=== PATIENT | female | born 1935 | race Caucasian/White ===

== ENCOUNTER → 2018-08-17 | Outpatient (CLI) | payer MEDICARE, OTHER ==
--- NOTE | 2018-08-17 17:37 | CONS ---
Assessment/Plan Assessment/Plan Hospital Course (Demo Recall) This is an 82-year-old female presenting with acute right knee pain for 2 months. Based on her examination history she likely has a mild sprain to her LCL and strain to her distal IT band as well as a possible medial meniscus tear. She is ligamentously stable. Plan: Recommend aspiration injection with steroid. Hinged knee brace to provide stability while lateral structures heal. Follow-up 4 weeks and at that time we will likely begin physical therapy if she is clinically improved. Assessment/Plan (Daily) Right knee aspiration and injection procedure: Risks and benefits aspiration reviewed with patient. The risks include infec tion, failure, pain, swelling, nerve/tendon/ligament damage. The patient verbalized understanding and verbal consent was obtained prior to procedure. The right knee was prepped in a sterile fashion with alcohol and betadine the site of aspiration was confirmed. Lateral approach was used. The skin and capsule was anesthetized with 3mL 1% lidocaine careful not to inject intra-art icularly. The right knee was aspirated. 35 mL of clear synovial fluid was aspirated. The needle was left intra-articularly the syringe was hugged and the syringe with 2 mL 1% lidocaine, 2 mL quarter 0.25% bupivacaine, 40 mg Kenalog was helped onto the needle. This was injected into the knee. The injection flowed freely. Good hemostasis was achieved and no complications noted. The patient tolerated the procedure well. Limit activity and ice for 24-48 hours Consultation Date/Type/Reason Admit Date/Time Date of Consultation: Aug 17, 2018 Reason for Consultation Right knee pain Date/Time of Note DATE: 08/17/18 TIME: 17:28 Hx of Present Illness Is a 82-year-old female with a chief complaint of right knee pain. The pain began approximately 2 months ago when stepping down from a high step. Denies any twisting or significant injury at that time. The patients pain is in the lateral and medial aspect of the right knee. Pain is not radiating to the lower leg. The pain is rated as a 8/10. Patient denies complaints of numbness or tingling. The pain is exacerbated by climbing stairs and ambulation. Pain is not relieved by NSAID's. Patient has been taking Aleve on a p.r.n. basis as well as using ice. Oral anti-inflammatories have given her gastritis. Duration: 2 months Injury: Stepped down from a high step Walking tolerance: Couple blocks Limp: Yes Support: Cane occasional Swelling: Yes Crepitation: Yes Instability: No Stairs: Uses banister Physical Therapy: No Injections: No NSAIDs: Aleve. The 2 gastritis Prior surgery: No Back pain: Yes Hip pain: No Risk of AVN : No Patient denies fever, chills, shortness of breath, chest pain, nausea/vomiting, constipation, diarrhea, numbness, and tingling. Past Medical History Poor circulation Irritable bowel syndrome Osteoarthritis Sinus problems Eczema Osteoporosis Past Surgical History Past Surgical Hx: noncontributory Family History Significant Family History: no pertinent family hx Social History Alcohol Use: occasionally Smoking Status: Never smoker Drug Use: none Exam/Review of Systems Exam Vitals Weight: 180 pounds Height: 5 foot 6 inches Exam General: Alert, oriented x3. No Acute Distress. Heart: Regular rate and rhythm. Lungs: No respiratory distress. No accessory muscle use. Musculoskeletal: Right Knee This is a well developed female who is alert, oriented times three and in no apparent distress. Skin is intact over the right knee as well as the lower extremity with no abrasions, lacerations, or ulcerations. Observation of the patient's gait reveals an antalgic gait with No thrust. Frontal plane alignment is slight valgus. There is a 2+ effusion. There is pain on palpation of medial joint line and laterally over the distal IT band and LCL. The patient demonstrates grinding anteriorly with ROM. Range of motion: 5 extension to approximately 110 degrees of flexion. Collateral ligament testing reveals no instability with varus or valgus stress at 0 and 30 degrees of flexion. Negative Michael's and negative posterior drawer. Neurovascularly intact with 5/5 EHL/tibialis anterior/gastroc. Sensation intact to light touch in a sural, saphenous, deep peroneal, superficial peroneal, medial and lateral plantar nerve distribution. Palpable, symmetric dorsalis pedis and posterior tibial pulses in both lower extremities. Hip examination normal. Imaging Imaging The patient received a standard set of films today that were personally reviewe d. Imaging included a standing bilateral knee AP, PA flexion, merchant views and a dedicated lateral of the affected knee: There is neutral alignment of the knee. There is minimal loss of joint space in all 3 compartment(s). There is no osteophyte formation. There is no subchondral sclerosis. There are no subchondral cysts. No fracture. No acute bony abnormality. Joint effusion. OREN JAMIL MD Aug 17, 2018 17:37
--- NOTE | 2018-08-18 08:10 | RADRPT ---
PROCEDURE: XR Knees. CLINICAL INDICATION: Bilateral knee pain. TECHNIQUE: Total of six views. Frontal, oblique, and lateral views of both knees. COMPARISON: No prior study is available for comparison. FINDINGS: There is no fracture or dislocation. There is a small right knee joint effusion. Articular surfaces are intact. There are small osteophytes arising from the patella bilaterally and t here is mild bilateral medial joint compartment narrowing. There is no lytic or blastic lesion. There is no radiopaque foreign body. IMPRESSION: 1. Mild to moderate bilateral knee degenerative change. 2. Small right knee joint effusion. 3. Otherwise unremarkable images of both knees. RPTAT: QQ .Tate Tomas MD, MD Date Time Electronically viewed and signed by .Tate Tomas MD, on 08/18/2018 08:10 .R/
== END | disposition home or self-care (01) ==
LOC: HKI 11:58
PROVIDERS: ATTEND Orthopaedic Surgery Adult Reconstructive Orthopaedic Surgery
DX: M25.561 Pain in right knee (principal)
CPT/HCPCS: 20610; 73564; G0463

== ENCOUNTER → 2018-09-13 | Outpatient (CLI) | payer MEDICARE, OTHER ==
--- NOTE | 2018-09-13 15:45 | CONS ---
Consult Date/Type/Reason Admit Date/Time Initial Consult Date Date/Time of Note DATE: 09/13/18 TIME: 15:42 Subjective 82-year-old female following up today for right knee pain. She was last seen 4 weeks ago for right knee pain and swelling. She was diagnosed with distal IT band tendinitis as well as a mild LCL sprain. She was aspirated and injected steroid injection at that time. Since then she feels more than 50% better but continues to have some pain and symptoms. She was unable to use the brace for ligament stability secondary to the brace continuously falling off. Her residual symptoms although better continue to bother her. She has been using diclofenac gel which has been helping. Denies numbness and tingling. Objective Vitals Weight: 180 pounds Height: 5 foot 6 inches Temperature: 90.2 Heart Rate: 71 Blood Pressure: 138/73 Respiratory Rate: 12 Exam General: Alert, oriented x3. No Acute Distress. Heart: Regular rate and rhythm. Lungs: No respiratory distress. No accessory muscle use. Musculoskeletal: Right Knee This is a well developed female who is alert, oriented times three and in no apparent distress. Skin is intact over the right knee as well as the lower extremity with no abrasions, lacerations, or ulcerations. Observation of the patient's gait reveals an antalgic gait with No thrust. Frontal plane alignment is slight valgus. There is no effusion. There is mild pain on palpation of medial joint line and laterally over the distal IT band and LCL. The patient demonstrates grinding anteriorly with ROM. Range of motion: 5 extension to approximately 110 degrees of flexion. Collateral ligament testing reveals no instability with varus or valgus stress at 0 and 30 degrees of flexion. Negative Michael's and negative posterior drawer. Neurovascularly intact with 5/5 EHL/tibialis anterior/gastroc. Sensation intact to light touch in a sural, saphenous, deep peroneal, superficial peroneal, medial and lateral plantar nerve distribution. Palpable, symmetric dorsalis pedis and posterior tibial pulses in both lower extremities. Hip examination normal. Assessment/Plan Hospital Course (Demo Recall) 82-year-old female being treated conservatively for right IT band tendinitis as well as mild LCL sprain. She has had over 50% improvement. She has been unable to utilize the brace secondary to it not fitting well. She is very stable on examination and I do not believe she needs the brace anymore. Plan: Physical therapy Continue diclofenac gel and ice Follow-up 3 months OREN JAMIL MD Sep 13, 2018 15:45
== END | disposition home or self-care (01) ==
LOC: HKI 11:21
PROVIDERS: ATTEND Orthopaedic Surgery Adult Reconstructive Orthopaedic Surgery
DX: M76.31 Iliotibial band syndrome, right leg (principal)
CPT/HCPCS: G0463